=== PATIENT | female | born 1950 | race Caucasian/White ===

== ENCOUNTER → 2018-05-06 | Outpatient (CLI) | payer MEDICARE, BC ==
[~2018-05-06] MED LIST: ASPI81TA15 PO; CALC-649 PO; LISI-362 PO; MULT1CAP59 PO; OMEP-218 PO; OND4 PO; OXYC1TAB54 PO
--- NOTE | 2018-05-10 08:32 | RADIOLOGY IMAGING REPORT ---
FACILITY: [facility] - [place] PATIENT NAME: JERICA LR : [id number] MR: [id number] V: [id number] EXAM DATE: ORDERING PHYSICIAN: DESMOND AVENDANO TECHNOLOGIST: Miriam Canada PROCEDURE:BILATERAL DIGITAL SCREENING MAMMOGRAM WITH CAD ASSISTED INTERPRETATION & 3D TOMOSYNTHESIS COMPARISON:Prior mammograms 04/09/17, 03/27/16, 03/22/15, 03/09/14, 02/17/13, 12/30/11. INDICATIONS:SCREENING FINDINGS: A small amount of fibroglandular tissue is seen throughout the breasts. The parenchymal pattern has remained stable allowing for difference in mammographic technique & patient positioning. There is no evidence of malignant appearing mass, malignant appearing calcifications or other secondary sign of malignancy in either breast. DIAGNOSTIC CATEGORY 1--NEGATIVE. RECOMMENDATIONS: ROUTINE MAMMOGRAM AND CLINICAL EVALUATION. IMPRESSION: BIRADS 1: Negative. No significant abnormality is seen. Dictated by: Kimberly Morris M.D. on 05/09/2018 at 15:01 Transcribed by: ARIA on 05/09/2018 at 15:26 Approved by: Kimberly Morris M.D. on 05/10/2018 at 8:31 [facility]
== END ==
LOC: MAMO 01:09
PROVIDERS: ATTEND Physician Assistant
DX: Z12.31 Encounter for screening mammogram for malignant neoplasm of breast (principal)
CPT/HCPCS: 77063; 77067

== ENCOUNTER → 2018-07-08 | Outpatient (CLI) | payer MEDICARE, BC ==
--- NOTE | 2018-07-08 10:02 | RADIOLOGY IMAGING REPORT ---
FACILITY: [facility] PATIENT NAME: Heather Lugo : 1950 MR: [id number] V: [id number] EXAM DATE: ORDERING PHYSICIAN: DESMOND AVENDANO TECHNOLOG[place]: [place] [facility] [place] Lugo : 1950 Visit/Account:[id number] Date of Sevice: 07/08/2018 BONE MINERAL DENSITY HISTORY: Osteoporosis COMPARISON: DEXA examination from November 2010 FINDINGS: LUMBAR SPINE: Bone mineral density (BMD) measured from L1-L4 correlates with a Z-score of 2.3 and a T-score of 1.0 which is normal as defined by the World Health Organization. The corresponding risk of fracture in t he lumbar spine is not increased compared with a young adult reference population. This value has de creased by 0.5% since the prior study. More than 5% change is considered significant. HIP: Bone mineral density (BMD) measured in the left total hip region correlates with a Z-score of 0.1 and a T-score of 1.3 which is normal as defined by the World Health Organization. The corresponding ris k of fracture in the hip is increased compared with a young adult reference population. This value h as decreased by 4.3% since the prior study. More than 5% change is considered significant. Bone mineral density (BMD) measured in the left Femoral Neck region measures 1.038 g/cm2. T score is 0.0, normal IMPRESSION: 1. Lumbar spine: Normal. There has been no significant change in the bone mineral density since th previous exam. 2. Left Total Hip: Normal. There has been no significant change in the bone mineral density since the previous exam. 3. Left Femoral Neck: Bone Mineral Density is 1.038 g/cm2. Normal The next DEXA scan of this patient should include the following sites: L1-L4 and left hip. FRAX? WHO Fracture Risk Assessment Tool link: <http://www.shef.ac.uk/FRAX/tool.jsp?locationValue=9> PLEASE NOTE: 1) The World Health Organization defines low BMD as follows: T-score Normal > -1 Osteopenia < -1 and > -2.5 Osteoporosis < -2.5 without fractures Established osteoporosis < -2.5 with fractures 2) In general, you may wish to consider: Diagnosis Treatment Follow-up DEXA Normal BMD Prevention 2-3 years Osteopenia Prevention/therapy 1-2 years Osteoporosis Therapy Yearly 3) Fracture risk estimated from the T-score is more accurate for vertebral fractures (often spontane ous) than for hip fractures. Report Dictated By: Amrit Giraldo MD at 07/08/2018 9:55 AM Report E-Signed By: Amrit Giraldo MD at 07/08/2018 9:58 AM WSN:[id number]
== END ==
LOC: RAD 06:53
PROVIDERS: ATTEND Physician Assistant
DX: M81.8 Other osteoporosis without current pathological fracture (principal)
CPT/HCPCS: 77080

== ENCOUNTER → 2019-06-28 | Outpatient (CLI) | payer MEDICARE, BC ==
--- NOTE | 2019-06-30 09:30 | RADIOLOGY IMAGING REPORT ---
FACILITY: [facility] - [place] PATIENT NAME: JERICA LR : [id number] MR: [id number] V: [id number] EXAM DATE: ORDERING PHYSICIAN: DESMOND AVENDANO TECHNOLOGIST: Ariadna Trivedi PROCEDURE: BILATERAL DIGITAL SCREENING MAMMOGRAM WITH CAD ASSISTED INTERPRETATION & 3D TOMOSYNTHESIS. REASON FOR STUDY: Screening. FAMILY HISTORY OF BREAST CANCER: Maternal Aunt, Maternal Cousin. BREAST PROCEDURES/TREATMENTS: None. COMPARISON: 05/06/18, 04/09/17, 03/27/16, 03/22/15, 03/09/14, 02/17/13. VIEWS OBTAINED: Bilateral 2D & 3D full field CC & MLO projections. BREAST DENSITY: There are scattered areas of fibroglandular density throughout the breast. MAMMOGRAM FINDINGS: Most of the parenchymal pattern has remained stable allowing for difference in mammographic technique & patient positioning. There is a small grouping of round calcifications in the anterior depth upper outer quadrant of the Left breast for which Spot magnification view is recommended. IMPRESSION: BIRADS 0: Incomplete. Additional view of Left breast is recommended as described. DIAGNOSTIC CATEGORY 0--INCOMPLETE: NEED ADDITIONAL IMAGING EVALUATION. RECOMMENDATIONS: ADDITIONAL MAMMOGRAPHIC VIEWS REQUIRED: LEFT BREAST. Dictated by: Kimberly Morris M.D. on 06/28/2019 at 17:00 Transcribed by: ARIA on 06/29/2019 at 9:52 Approved by: Kimberly Morris M.D. on 06/30/2019 at 9:25 [facility]
== END ==
LOC: MAMO 01:27
PROVIDERS: ATTEND Physician Assistant
DX: R92.2 Inconclusive mammogram (principal); Z80.3 Family history of malignant neoplasm of breast
CPT/HCPCS: 77063; 77067

== ENCOUNTER → 2019-07-12 | Outpatient (CLI) | payer MEDICARE, BC ==
--- NOTE | 2019-07-12 16:21 | RADIOLOGY IMAGING REPORT ---
FACILITY: [facility] PATIENT NAME: JERICA LR : [id number] MR: [id number] V: [id number] EXAM DATE: ORDERING PHYSICIAN: DESMOND AVENDANO TECHNOLOGIST: Ariadna Trivedi PROCEDURE:LEFT DIGITAL MAMMOGRAM DIAGNOSTIC WITH CAD ASSISTED INTERPRETATION. REASON FOR STUDY: Further evaluation. COMPARISON STUDIES: 06/28/19, 05/06/18, 04/09/17, 03/27/16, 03/22/15, 03/09/14, 02/17/13. VIEWS OBTAINED: 2D Spot magnification views in the Left CC & MLO projection. MAMMOGRAM FINDINGS: The Spot magnification views demonstrate 2 small groupings of round calcifications in the lateral portion of the Left breast. The more lateral of the 2 appear new. These are on the upper portion of the Left breast on the Left MLO view in the anterior depth. Stereotactic biopsies of these calcifications are recommended for further evaluation. DIAGNOSTIC CATEGORY 4--SUSPICIOUS FOR MALIGNANCY. RECOMMENDATIONS: STEREOTACTIC BREAST BIOPSY: LEFT BREAST. IMPRESSION: BIRADS 4: Suspicious for malignancy. Stereotactic biopsy of the more lateral of the 2 groupings of calcifications in the upper outer quadrant of the Left breast anterior depth. Dictated by: Kimberly Morris M.D. on 07/12/2019 at 13:37 Transcribed by: ARIA on 07/12/2019 at 14:27 Approved by: Kimberly Morris M.D. on 07/12/2019 at 16:16 [facility]
== END ==
LOC: MAMO 04:10
PROVIDERS: ATTEND Physician Assistant
DX: R92.1 Mammographic calcification found on diagnostic imaging of breast (principal)
CPT/HCPCS: 77061; 77065